=== PATIENT | female | born 1990 | race Caucasian/White ===

== ENCOUNTER → 2023-12-09 | Emergency (ER) | payer MEDICAID ==
[~2023-12-09] VITALS: Ht 160 cm; Wt 95.4 kg
[~2023-12-09] MED LIST: 0.9% SODIUM CHLORIDE 5 ML NEB SOLUTION NEB ONE; ALBU18HF12 IH; ALBUTEROL SULFATE 2.5 MG/0.5 ML NEB SOLUTION NEB ONE; PRED-554 PO; PREN1TAB89 PO
[2023-12-09 09:27] VITALS: TEMP 97.3
[2023-12-09] MEDS: PredniSONE 20 MG TABLET PO ONE (09:45)
[2023-12-09 09:51] LABS: COVID AG,FIA SOURCE NASAL SWAB
[2023-12-09 10:01] VITALS: PULSE 108; RESP 17; O2SAT 95
[2023-12-09 10:04] VITALS: PULSE 108; RESP 17; O2SAT 95
[2023-12-09 10:13] VITALS: PULSE 103; RESP 18; O2SAT 99
[2023-12-09 10:15] LABS: INFLUENZA TYPE A NEGATIVE FOR TYPE A (NEGATIVE); INFLUENZA TYPE B NEGATIVE FOR TYPE B (NEGATIVE); SARS-COV2 (COVID) ANTIGEN,FIA Negative (Negative)
[2023-12-09 10:35] VITALS: BP 136/95; PULSE 104; RESP 18; O2SAT 95
== END | disposition home or self-care (01) ==
LOC: EMS 09:20
DX: J45.901 Unspecified asthma with (acute) exacerbation (principal); Z20.822 Contact with and (suspected) exposure to COVID-19
CPT/HCPCS: 99284; 71045; 87426; 87804; 94640; J7512; J7613

== ENCOUNTER 2023-12-28 21:18 | Emergency (ER) | payer SELFPAY ==
[~2023-12-28] VITALS: Ht 157.5 cm; Wt 95.5 kg
[~2023-12-28 21:18] MED LIST changes: -0.9% SODIUM CHLORIDE 5 ML NEB SOLUTION NEB ONE; -ALBUTEROL SULFATE 2.5 MG/0.5 ML NEB SOLUTION NEB ONE
[2023-12-28 21:51] VITALS: BP 167/116; PULSE 106; RESP 16; TEMP 98.7; O2SAT 99
== END 2023-12-29 02:06 | disposition left against medical advice (07) ==
LOC: EMS 21:18
DX: R06.02 Shortness of breath (principal); Z53.21 Procedure and treatment not carried out due to patient leaving prior to being seen by health care provider